=== PATIENT | female | born 1990 | race African-American/Black ===

== ENCOUNTER 2017-10-27 19:37 | Emergency (ER) | payer MEDICAID, OTHER ==
[~2017-10-27] VITALS: Ht 180.3 cm; Wt 106.0 kg
[2017-10-27 20:35] LABS: CLARITY URINE CLEAR (CLEAR); COLOR URINE DARK YELLOW (YELLOW); KETONES URINE TRACE (NEGATIVE); LEUKOCYTE ESTERASE URINE TRACE (NEGATIVE); NITRITE URINE NEGATIVE (NEGATIVE); OCCULT BLOOD URINE NEGATIVE (NEGATIVE); PROTEIN URINE TRACE (NEGATIVE); SPECIFIC GRAVITY URINE 1.028 (1.005-1.030)
[2017-10-28] MEDS ORDERED: SODIUM CHLORIDE 0.9% 1,000 ML IV ONE (01:39)
[2017-10-28] MEDS ORDERED: ONDANSETRON HCL 4MG/2ML VIAL IV STA (01:39)
[2017-10-28] MEDS ORDERED: KETOROLAC 30MG/ML VIAL IV STA (01:39)
[2017-10-28 02:00] LABS: BASOPHILS % 0.5 % (0.0-2.0); EOSINOPHILS % 0.1 % (0.0-5.0); HEMATOCRIT. 35.1 % (36.0-48.0); HEMOGLOBIN. 11.3 g/dL (12.0-16.0); MEAN CORPUSCULAR HEMOGLOBIN 21.1 pg (28.0-32.0); MEAN CORPUSCULAR VOLUME 65.5 fL (81.0-99.0); MEAN PLATELET VOLUME 8.6 fl (7.4-10.4); MONOCYTES % 7.7 % (2.0-8.0); NEUTROPHILS % 71.7 % (40.0-76.0); PLATELET 185 x1000/uL (130-400); RED BLOOD CELL COUNT 5.36 mill/uL (4.2-5.4); RED CELL DISTRIBUTION WIDTH 19.1 % (11.6-14.6)
[2017-10-28] MEDS ORDERED: FAMOTIDINE 20MG/2ML VIAL IV ONE (02:00)
[2017-10-28 02:04] LABS: CHLORIDE 104 mEq/L (98-107)
[2017-10-28 02:29] LABS: PLATELET ESTIMATE NORMAL
[2017-10-28] MEDS ORDERED: MAGNESIUM/ALUMINUM HYDROXIDE/SIMETHICONE 30ML UDC PO ONE (03:15)
[2017-10-28] MEDS ORDERED: VISCOUS LIDOCAINE 2% 15 ML UDC PO ONE (03:15)
[2017-10-28] MEDS ORDERED: ONDANSETRON HCL 4MG/2ML VIAL IV ONE (03:15)
[2017-10-28] MEDS ORDERED: DICYCLOMINE 10 MG/5 ML ORAL SYR PO ONE (03:15)
[2017-10-28] MEDS ORDERED: METOCLOPRAMIDE HCL 10MG/2ML VIAL IV ONE (04:15)
[2017-10-28] MEDS ORDERED: METOCLOPRAMIDE HCL 10MG TABLET PO ONE (04:15)
[2017-10-28 06:44] VITALS: BP 117/71
== END 2017-10-28 06:45 | disposition home or self-care (01) ==
LOC: ER 19:37
DX: R10.9 Unspecified abdominal pain (principal); R11.2 Nausea with vomiting, unspecified; R19.7 Diarrhea, unspecified; F17.200 Nicotine dependence, unspecified, uncomplicated
CPT/HCPCS: 36415; 71045; 76705; 80053; 81003; 81025; 83690; 85025; 96361; 96374; 96375; 99285; J1885; J2405; J2765; J3490; J7030; J8597

== ENCOUNTER 2019-10-21 22:39 | Emergency (ER) | payer MEDICAID ==
[~2019-10-21] VITALS: Ht 175.3 cm; Wt 118.0 kg
[2019-10-21 23:00] VITALS: BP 127/85
== END 2019-10-22 00:33 | disposition left against medical advice (07) ==
LOC: ER 22:39
DX: R68.89 Other general symptoms and signs (principal); Z53.21 Procedure and treatment not carried out due to patient leaving prior to being seen by health care provider
CPT/HCPCS: 81025

== ENCOUNTER 2023-08-12 18:50 | Inpatient (IN) | payer MEDICAID, OTHER ==
[~2023-08-12] VITALS: Ht 175.3 cm; Wt 112.9 kg
[2023-08-12] MEDS: DEXT 5%/0.9% NACL 1,000 ML IV ONE (19:45)
[2023-08-12 20:15] LABS: BASOPHILS % 0.4 % (0.0-2.0); DIFFERENTIAL COMMENT 0; EOSINOPHILS % 0.4 % (0.0-5.0); HEMATOCRIT. 30.9 % (36.0-48.0); HEMOGLOBIN. 10.2 g/dL (12.0-16.0); LYMPHOCYTES % 18.5 % (20.0-50.0); MEAN CORPUSCULAR HEMOGLOBIN 25.5 pg (28.0-32.0); MEAN CORPUSCULAR VOLUME 77.2 fL (81.0-99.0); MEAN PLATELET VOLUME 8.8 fl (7.4-10.4); MONOCYTES % 3.4 % (2.0-8.0); NEUTROPHILS % 77.3 % (40.0-76.0); PLATELET 178 x1000/uL (130-400); RED BLOOD CELL COUNT 4.01 mill/uL (4.2-5.4); RED CELL DISTRIBUTION WIDTH 18.3 % (11.6-14.6); WHITE BLOOD COUNT 14.7 x1000/uL (4.5-11.0)
[2023-08-12] MEDS: ONDANSETRON HCL 4MG/2ML INJ IV ONE (20:17)
[2023-08-12 20:24] LABS: PROTHROMBIN TIME 11.4 sec (9.6-11.0)
[2023-08-12 20:58] LABS: ALANINE AMINOTRANSFERASE 12 IU/L (10-49); ALBUMIN 3.9 g/dL (3.2-4.8); ASPARTATE AMINOTRANSFERASE 14 IU/L (<34); B-HCG QUANTITATIVE 82824 mIU/mL (<3); BILIRUBIN TOTAL 0.8 mg/dL (0.1-1.0); CALCIUM 8.3 mg/dL (8.7-10.4); CARBON DIOXIDE 22 mEq/L (21-32); CHLORIDE 103 mEq/L (98-107); CREATININE 1.5 mg/dL (0.6-1.0); GLUCOSE 238 mg/dL (70-105); POTASSIUM 3.2 mEq/L (3.5-5.1); PROTEIN TOTAL 6.8 g/dL (6.0-8.3); SODIUM 136 mEq/L (136-145); TROPONIN I HIGH SENSITIVITY 22 ng/L (3.0-34); UREA NITROGEN BLOOD 12 mg/dL (9-23)
[2023-08-12] MEDS ORDERED: SODIUM CHLORIDE 0.9% 1,000 ML IV ONE (21:00)
[2023-08-12 21:13] LABS: BETA HYDROXYBUTYRATE < 0.1 mMol/L (0.0-0.3)
[2023-08-12] MEDS ORDERED: ETOMIDATE 2MG/ML 10ML VIAL IV ONE (22:38)
[2023-08-12] MEDS ORDERED: SUCCINYLCHOLINE CHLORIDE 200MG/10ML IV ONE (22:38)
[2023-08-12] MEDS ORDERED: ROCURONIUM BROMIDE 10MG/ML VIAL 5ML IV ONE (22:58)
[2023-08-12] MEDS ORDERED: BUPIVACAINE HCL/PF 0.5% (5MG/ML) 10ML ONE (23:18)
[2023-08-12] MEDS ORDERED: HYDROMORPHONE HCL/PF 2MG/ML CPJ ONE (23:18)
[2023-08-13] MEDS ORDERED: NEOSTIGMINE METHYLSULFATE 1MG/ML 10 ML VIAL ONE ×2 (00:04→08:10)
[2023-08-13] MEDS ORDERED: GLYCOPYRROLATE 0.2 MG/ML 2ML VIAL ONE ×4 (00:04→08:10)
[2023-08-13 00:12] LABS: HEMATOCRIT 30.6 % (36.0-48.0); HEMOGLOBIN 9.8 g/dL (12.0-16.0)
[2023-08-13] MEDS ORDERED: MEPERIDINE HCL/PF 25MG/ML CPJ IV PRN (00:30)
[2023-08-13] MEDS ORDERED: ONDANSETRON HCL 4MG/2ML INJ IV PRN (00:30)
[2023-08-13] MEDS ORDERED: LABETALOL 5MG/ML SYR 20 MG/4 ML SYRINGE IV PRN (00:30)
[2023-08-13] MEDS ORDERED: NALOXONE HCL 0.4MG/ML VIAL IV PRN (01:00)
[2023-08-13] MEDS: HYDROMORPHONE HCL/PF 2MG/ML CPJ IV PRN (01:30)
[2023-08-13 02:00] VITALS: BP 138/67; PULSE 78; RESP 18; TEMP 95.5
[2023-08-13 04:00] VITALS: BP 116/61; PULSE 74; RESP 20; TEMP 97.9
[2023-08-13] MEDS: MORPHINE SULFATE 2 MG/ML CPJ (NOT FOR IM USE) IV PRN (04:18)
[2023-08-13 08:00] VITALS: BP 121/73; PULSE 88; RESP 19; TEMP 98.6
[2023-08-13] MEDS ORDERED: MIDAZOLAM HCL 2 MG/2 ML VIAL ONE (08:09)
[2023-08-13] MEDS ORDERED: FENTANYL CITRATE/PF 50MCG/ML 2ML VIAL ONE (08:09)
[2023-08-13] MEDS ORDERED: ONDANSETRON HCL 4MG/2ML INJ ONE (08:10)
[2023-08-13] MEDS ORDERED: DEXAMETHASONE 4MG/ML 1ML VIAL ONE (08:10)
[2023-08-13] MEDS ORDERED: ROCURONIUM BROMIDE 10MG/ML VIAL 5ML IV ONE ×2 (08:10→10:13)
[2023-08-13] MEDS ORDERED: PIPERACILLIN/TAZOBACTAM 3.375 G in DEXTROSE 5% WATER 50 ML IV SCH (08:45)
[2023-08-13] MEDS ORDERED: CLONIDINE 0.1MG TABLET PO PRN (08:45)
[2023-08-13] MEDS ORDERED: DEXTROSE 50% WATER 50ML SYRINGE IV PRN ×2 (08:45)
[2023-08-13] MEDS ORDERED: PROPOFOL 200MG/20ML VIAL IV ONE (09:16)
[2023-08-13] MEDS: PIPERACILLIN/TAZO 3.375G/50ML IV SCH (10:10)
[2023-08-13] MEDS: PANTOPRAZOLE SODIUM 40 MG/VIAL IV SCH (10:10)
[2023-08-13] MEDS: MORPHINE SULFATE 4 MG/ML INJ (FOR IV/IM USE) IV PRN (10:11)
[2023-08-13] MEDS ORDERED: PHENYLEPHRINE HCL 10 MG/ML 1ML (IV VIAL) IV ONE ×2 (10:20→11:10)
[2023-08-13] MEDS: SODIUM CHLORIDE 0.9% 1,000 ML IV SCH (10:48)
[2023-08-13 12:00] VITALS: BP 121/73; PULSE 88; RESP 19; TEMP 98.6
[2023-08-13] MEDS: BLOOD SUGAR DIAGNOSTIC STRIP TEST SCH (12:20)
[2023-08-13] MEDS: INSULIN LISPRO 100 UNITS/ML SUBCUT SCH (12:50)
[2023-08-13 13:55] LABS: HEMATOCRIT 27.3 % (36.0-48.0); MEAN CORPUSCULAR HEMOGLOBIN 26.4 pg (28.0-32.0); MEAN CORPUSCULAR HGB CONC 33.1 g/dL (31.0-37.0); MEAN CORPUSCULAR VOLUME 79.8 fL (81.0-99.0); PLATELET 113 x1000/uL (130-400); RED BLOOD CELL COUNT 3.43 mill/uL (4.2-5.4); RED CELL DISTRIBUTION WIDTH 18.2 % (11.6-14.6); WHITE BLOOD COUNT 14.4 x1000/uL (4.5-11.0)
[2023-08-13 14:09] LABS: ALANINE AMINOTRANSFERASE 12 IU/L (10-49); ALBUMIN 3.3 g/dL (3.2-4.8); ASPARTATE AMINOTRANSFERASE 26 IU/L (<34); BILIRUBIN TOTAL 1.7 mg/dL (0.1-1.0); CALCIUM 7.6 mg/dL (8.7-10.4); CARBON DIOXIDE 23 mEq/L (21-32); CHLORIDE 107 mEq/L (98-107); GLUCOSE 107 mg/dL (70-105); POTASSIUM 3.5 mEq/L (3.5-5.1); PROTEIN TOTAL 5.6 g/dL (6.0-8.3); SODIUM 137 mEq/L (136-145); UREA NITROGEN BLOOD 10 mg/dL (9-23)
[2023-08-13] MEDS: POTASSIUM CHLORIDE 20MEQ/PACKET PO NR (14:33)
[2023-08-13 16:00] VITALS: BP 98/56; PULSE 114; RESP 20; TEMP 97.6
[2023-08-13 20:00] VITALS: BP 141/57; PULSE 110; RESP 20; TEMP 97.8
[2023-08-14] VITALS: BP 128/64; PULSE 105; RESP 19; TEMP 97.6
[2023-08-14 04:00] VITALS: BP 120/68; PULSE 108; RESP 20; TEMP 97.8
[2023-08-14 07:48] LABS: BASOPHILS % 0.1 % (0.0-2.0); DIFFERENTIAL COMMENT 0; EOSINOPHILS % 1.1 % (0.0-5.0); HEMATOCRIT. 21.8 % (36.0-48.0); HEMOGLOBIN. 7.4 g/dL (12.0-16.0); LYMPHOCYTES % 17.7 % (20.0-50.0); MEAN CORPUSCULAR HEMOGLOBIN 26.6 pg (28.0-32.0); MEAN CORPUSCULAR HGB CONC 33.9 g/dL (31.0-37.0); MEAN CORPUSCULAR VOLUME 78.5 fL (81.0-99.0); MEAN PLATELET VOLUME 8.3 fl (7.4-10.4); MONOCYTES % 7.9 % (2.0-8.0); NEUTROPHILS % 73.2 % (40.0-76.0); PLATELET 104 x1000/uL (130-400); RED BLOOD CELL COUNT 2.77 mill/uL (4.2-5.4); RED CELL DISTRIBUTION WIDTH 19.1 % (11.6-14.6); WHITE BLOOD COUNT 8.3 x1000/uL (4.5-11.0)
[2023-08-14 08:00] VITALS: BP 129/71; PULSE 101; RESP 19; TEMP 99.5
[2023-08-14 08:30] LABS: ALANINE AMINOTRANSFERASE 13 IU/L (10-49); ALBUMIN 3.3 g/dL (3.2-4.8); ASPARTATE AMINOTRANSFERASE 22 IU/L (<34); BILIRUBIN DIRECT 0.4 mg/dL (<=3.0); BILIRUBIN TOTAL 0.9 mg/dL (0.1-1.0); CALCIUM 7.9 mg/dL (8.7-10.4); CARBON DIOXIDE 22 mEq/L (21-32); CHLORIDE 108 mEq/L (98-107); CREATININE 0.9 mg/dL (0.6-1.0); GLUCOSE 107 mg/dL (70-105); PHOSPHORUS 2.7 mg/dL (2.5-4.9); POTASSIUM 3.6 mEq/L (3.5-5.1); PROTEIN TOTAL 5.5 g/dL (6.0-8.3); SODIUM 136 mEq/L (136-145); UREA NITROGEN BLOOD 8 mg/dL (9-23)
[2023-08-14] MEDS: ACETAMINOPHEN 325MG TABLET PO PRN (09:16)
[2023-08-14 13:00] VITALS: BP 107/55; PULSE 92; RESP 17; TEMP 97.7
[2023-08-14] MEDS ORDERED: IBUPROFEN 200MG TABLET PO PRN (15:15)
[2023-08-14] MEDS: IRON SUCROSE COMPLEX 100 MG/5 ML ML IV NR (15:59)
[2023-08-14 16:00] VITALS: BP 137/74; PULSE 103; RESP 18; TEMP 97.5
[2023-08-14] MEDS: SODIUM CHLORIDE 0.9% 1,000 ML IV SCH (16:00)
[2023-08-14] MEDS: MAGNESIUM/ALUMINUM HYDROXIDE/SIMETHICONE 30ML UDC PO PRN (16:40)
[2023-08-14] MEDS: HYDROCODONE/ACETAMINOPHEN 5/325MG TABLET PO PRN (16:40)
[2023-08-14] MEDS: FERROUS SULFATE 325MG TABLET PO SCH (18:23)
[2023-08-14 19:13] LABS: CLARITY URINE CLOUDY (CLEAR); COLOR URINE YELLOW (YELLOW); GLUCOSE URINE NEGATIVE (NEGATIVE); KETONES URINE NEGATIVE (NEGATIVE); LEUKOCYTE ESTERASE URINE NEGATIVE (NEGATIVE); NITRITE URINE NEGATIVE (NEGATIVE); OCCULT BLOOD URINE 3+ (NEGATIVE); PH URINE 5.5 (4.5-8.0); PROTEIN URINE NEGATIVE (NEGATIVE); SPECIFIC GRAVITY URINE 1.011 (1.005-1.030); UROBILINOGEN URINE 0.2 E.U./dL (0.2-1.0)
[2023-08-14 19:35] LABS: BACTERIA URINE 3+; SQUAMOUS EPITHELIAL CELL URINE 1+ /lpf (RARE/1+)
[2023-08-14 19:36] LABS: RBC URINE 50-100 /hpf (0-2); WBC URINE 0-2 /hpf (0-2)
[2023-08-14 20:00] VITALS: BP 133/75; PULSE 93; RESP 18; TEMP 97.3
[2023-08-15 04:00] VITALS: BP 121/68; PULSE 98; RESP 18; TEMP 97.4
[2023-08-15 08:00] VITALS: BP 128/70; PULSE 74; RESP 20; TEMP 97.4
[2023-08-15] MEDS: POLYETHYLENE GLYCOL 3350 (17GM) 1 DOSE PACK PO SCH (09:17)
[2023-08-15] MEDS: DOCUSATE SODIUM 100MG CAPSULE PO SCH (09:17)
[2023-08-15] MEDS: MULTIVITAMINS,THER W-MINERALS TABLET PO SCH (09:18)
[2023-08-15 12:00] VITALS: BP 129/64; PULSE 72; RESP 20; TEMP 97.2
[2023-08-15] MEDS: IBUPROFEN 600MG TABLET PO PRN (12:55)
[2023-08-15 18:03] LABS: BASOPHILS % 0.3 % (0.0-2.0); EOSINOPHILS % 1.2 % (0.0-5.0); HEMATOCRIT. 22.8 % (36.0-48.0); HEMOGLOBIN. 7.9 g/dL (12.0-16.0); LYMPHOCYTES % 19.2 % (20.0-50.0); MEAN CORPUSCULAR HEMOGLOBIN 27.9 pg (28.0-32.0); MEAN CORPUSCULAR HGB CONC 34.7 g/dL (31.0-37.0); MEAN CORPUSCULAR VOLUME 80.4 fL (81.0-99.0); MEAN PLATELET VOLUME 8.2 fl (7.4-10.4); MONOCYTES % 6.4 % (2.0-8.0); NEUTROPHILS % 72.9 % (40.0-76.0); PLATELET 124 x1000/uL (130-400); RED BLOOD CELL COUNT 2.83 mill/uL (4.2-5.4); RED CELL DISTRIBUTION WIDTH 18.8 % (11.6-14.6); WHITE BLOOD COUNT 9.2 x1000/uL (4.5-11.0)
[2023-08-15 18:21] LABS: CARBON DIOXIDE 26 mEq/L (21-32); CHLORIDE 104 mEq/L (98-107); CREATININE 0.8 mg/dL (0.6-1.0); GLUCOSE 141 mg/dL (70-105); POTASSIUM 3.2 mEq/L (3.5-5.1); SODIUM 136 mEq/L (136-145)
[2023-08-15 18:27] LABS: UREA NITROGEN BLOOD < 5 mg/dL (9-23)
[2023-08-15 20:00] VITALS: BP 130/64; PULSE 102; RESP 16; TEMP 97.7
[2023-08-16 04:00] VITALS: BP 144/89; PULSE 94; RESP 16; TEMP 97.3
[2023-08-16 08:00] VITALS: BP 134/85; PULSE 85; RESP 20; TEMP 98.2
[2023-08-16 12:00] VITALS: BP 130/85; PULSE 91; RESP 20; TEMP 98.2
[2023-08-16 14:12] VITALS: BP 130/85; PULSE 91; TEMP 98.2; O2SAT 98
[2023-08-16] MEDS: POTASSIUM CHLORIDE 20MEQ TABLET SR PO NR (14:56)
== END 2023-08-16 15:45 | disposition home or self-care (01) | DRG 547 ==
LOC: ER 18:50 → 6EST 08-13 02:05
PROVIDERS: ADMIT Obstetrics & Gynecology; ATTEND Internal Medicine
PROC: 0UB50ZZ Excision of Right Fallopian Tube, Open Approach (ICD-10-PCS; principal; 2023-08-13)
PROC: 10T20ZZ Resection of Products of Conception, Ectopic, Open Approach (ICD-10-PCS; 2023-08-13)
PROC: 30233N1 Transfusion of Nonautologous Red Blood Cells into Peripheral Vein, Percutaneous Approach (ICD-10-PCS; 2023-08-13)
PROC: 0W9G0ZZ Drainage of Peritoneal Cavity, Open Approach (ICD-10-PCS; 2023-08-13)
DX: O00.101 Right tubal pregnancy without intrauterine pregnancy (principal); N17.0 Acute kidney failure with tubular necrosis; K66.1 Hemoperitoneum; I95.9 Hypotension, unspecified; E87.6 Hypokalemia; O26.831 Pregnancy related renal disease, first trimester; O99.891 Other specified diseases and conditions complicating pregnancy; O99.211 Obesity complicating pregnancy, first trimester; O99.011 Anemia complicating pregnancy, first trimester; O99.281 Endocrine, nutritional and metabolic diseases complicating pregnancy, first trimester; Z3A.10 10 weeks gestation of pregnancy; O21.9 Vomiting of pregnancy, unspecified; Z90.79 Acquired absence of other genital organ(s)
CPT/HCPCS: 36415; 76801; 80048; 80053; 80076; 81003; 82010; 82962; 83036; 83735; 84100; 84145; 84484; 84702; 85014; 85018; 85025; 85027; 85044; 86850; 86900; 86920; 88302; 93970; 99291; C9113; J0330; J1100; J1170; J2250; J2270; J2370; J2405; J2543; J2704; J2710; J3010; J3490; J7030; J7042; P9016

== ENCOUNTER 2023-08-22 13:55 | Emergency (ER) | payer OTHER ==
[~2023-08-22] VITALS: Ht 175.3 cm; Wt 105.0 kg
[2023-08-22 14:12] VITALS: O2SAT 100
[2023-08-22 16:52] VITALS: BP 127/78; PULSE 77; RESP 16; TEMP 98.8
== END 2023-08-22 17:14 | disposition home or self-care (01) ==
LOC: ER 13:55
DX: O00.00 Abdominal pregnancy without intrauterine pregnancy (principal); Z48.02 Encounter for removal of sutures
CPT/HCPCS: 99281

== ENCOUNTER 2025-02-24 17:16 | Emergency (ER) | payer OTHER ==
[~2025-02-24] VITALS: Ht 175.3 cm; Wt 99.0 kg
[2025-02-24 17:44] VITALS: TEMP 36.8; O2SAT 100
[2025-02-24 21:36] VITALS: TEMP 98.2
[2025-02-24] MEDS: IBUPROFEN 400MG TABLET PO ONE (21:36)
[2025-02-24] MEDS: ACETAMINOPHEN 500MG TABLET PO ONE (21:36)
[2025-02-24] MEDS ORDERED: IBUP-2028 MT (22:18)
[2025-02-24] MEDS ORDERED: ACET-2708 MT (22:18)
[2025-02-24 22:52] VITALS: BP 135/93; PULSE 62; RESP 18; O2SAT 98
== END 2025-02-24 22:53 | disposition home or self-care (01) ==
LOC: ER 17:16
DX: M23.8X2 Other internal derangements of left knee (principal); M25.562 Pain in left knee; Z98.890 Other specified postprocedural states
CPT/HCPCS: 93971; 73562; 29505; 99284; Z7610